=== PATIENT | female | born 1980 | race African-American/Black ===

== ENCOUNTER 2016-08-03 10:30 | Emergency (ER) | payer MEDICARE, OTHER ==
[~2016-08-03] VITALS: Ht 160 cm; Wt 90.0 kg
[2016-08-03 10:31] VITALS: BP 173/101; PULSE 89; RESP 16; TEMP 97.7; O2SAT 97
--- NOTE | 2016-08-03 10:58 | PD ---
HPI Chief Complaint: Foreign Body Time Seen by Provider: 10:55 Travel History International Travel<30 days: No Contact w/Intl Traveler<30days: No Traveled to known affect area: No History of Present Illness HPI Patient is a 36-year-old female presented to the emergency department for evaluation of a possible foreign body in her throat. Patient states she was eating chicken this morning prior to going to [place] and states her hair got caught in the chicken and she thinks she swallowed a piece of hair. Patient feels as if she has something stuck in her throat. She denies any history of esophageal strictures, indigestion, alcoholism. Patient denies drooling, shortness of breath or wheezing. PFSH Past Medical History Medical History: Denies Significant Hx ?: Not Social History Alcohol Use: No Tobacco Use: Yes Substance Use: No Allergies-Medications (Allergen,Severity, Reaction): Coded Allergies: No Known Allergies (Unverified , 08/03/16) Review of Systems Except as stated in HPI: all other systems reviewed are Neg HENT: Positive: Other (feels foreign body in her throat) Respiratory: No: Cough, Shortness of Breath, Wheezing, Stridor Physical Exam Narrative GENERAL: Well-nourished, well-developed patient. SKIN: Focused skin assessment warm/dry. HEAD: Normocephalic. EYES: No scleral icterus. No injection or drainage. ENT: Mucosa pink and moist. No erythema or exudates. No uvular edema. No uvular , palatal, or tonsillar deviation. Airway patent. Nasal turbinates appear normal without nasal blood, purulent drainage or septal hematoma. NECK: Supple, trachea midline. No JVD or lymphadenopathy. CARDIOVASCULAR: Regular rate and rhythm without murmurs, gallops, or rubs. RESPIRATORY: Breath sounds equal bilaterally. No accessory muscle use. No stridor noted on exam. GASTROINTESTINAL: Abdomen soft, non-tender, nondistended. MUSCULOSKELETAL: No cyanosis, or edema. BACK: Nontender without obvious deformity. No CVA tenderness. Data Data Last Documented VS Vital Signs Date Time Temp Pulse Resp B/P Pulse Ox O2 Delivery O2 Flow Rate FiO2 08/03/16 10:31 97.7 89 16 173/101 97 Orders Soft Tissue Neck (08/03/16 ) MDM Medical Decision Making Medical Screen Exam Complete: Yes Emergency Medical Condition: Yes Interpretation(s) Vital Signs Date Time Temp Pulse Resp B/P Pulse Ox O2 Delivery O2 Flow Rate FiO2 08/03/16 10:31 97.7 89 16 173/101 97 Differential Diagnosis Retained foreign object versus sore throat versus esophageal stricture versus other Narrative Course Patient is a 36-year-old female presenting to emergency department for evaluation of possible foreign object stuck in her throat. Patient thinks she swallowed a piece of her hair and feels as if it stuck there, she states that she was concerned that her airway would be cut off. She has had no stridor, wheezing, she is able to tolerate oral fluids that were given to her in the emergency department. Her vital signs are stable. Imaging of the neck shows no retained object. Patient is encouraged to follow-up with her primary care provider, return to emergency department for any new or worsening symptoms. She verbalized understanding of these instructions. Patient is stable for discharge Diagnosis Primary Impression: Foreign body sensation in throat Referrals: Primary Care Physician Patient Instructions: Esophageal Foreign Body (GEN), General Instructions Additional Instructions: Return to emergency department immediately for any new or worsening symptoms Maintain adequate fluid intake Follow-up with her primary doctor Med/Other Pt SpecificInfo: No Change to Meds Disposition: 01 DISCHARGE HOME Condition: Stable Pau Wilcox TELEVISION REPAIRMAN Aug 03, 2016 10:58
--- NOTE | 2016-08-03 11:35 | RADRPT ---
EXAM DATE/TIME: 08/03/2016 11:15 [facility] COMPARISON: No previous studies available for comparison. INDICATIONS : Throat discomfort. Patient states piece of chicken is stuck in her throat. MEDICAL HISTORY : None. SURGICAL HISTORY : None. ENCOUNTER: Initial ACUITY: 1 day PAIN SCORE: 2/10 LOCATION: neck. FINDINGS: Two view examination of the soft tissues of the neck demonstrates the hypopharyngeal airway to have a grossly normal configuration. The trachea is midline. No radiopaque foreign bodies are seen. CONCLUSION: Negative radiographs soft tissue neck. Mild degenerative changes are present in the cervical spine. Malik Hernandez MD FACR on August 03, 2016 at 11:33 Board Certified Radiologist. This report was verified electronically.
== END 2016-08-03 12:07 | disposition home or self-care (01) ==
LOC: NETRI 10:30
DX: Z03.89 Encounter for observation for other suspected diseases and conditions ruled out (principal); R09.89 Other specified symptoms and signs involving the circulatory and respiratory systems; Z72.0 Tobacco use
CPT/HCPCS: 70360; 99283